=== PATIENT | female | born 1970 | race Caucasian/White ===

== ENCOUNTER → 2021-01-05 13:46 | Outpatient (CLI) | payer OTHER, SELFPAY ==
[2021-01-05 13:54] LABS: Basophils % 0.5 % (0.1-2.0); Eosinophils # 0.1 K/mm3 (0.0-0.4); Eosinophils % 1.3 % (0.1-12.0); Hematocrit 46.2 % (37.0-47.0); Hemoglobin 15.1 g/dL (12.2-16.2); Lymphocytes # 2.3 K/mm3 (0.7-4.5); Mean Corpuscular HGB Conc 32.7 g/dL (31.8-35.4); Mean Corpuscular Hemoglobin 31.2 pg (27.0-31.2); Mean Corpuscular Volume 95.3 fl (81-99); Mean Platelet Volume 9.2 fl (7.4-10.4); Monocytes # 0.5 K/mm3 (0.1-1.0); Monocytes % 6.5 % (1.7-9.3); Neutrophils # 4.3 K/mm3 (1.8-7.8); Neutrophils % 59.6 % (37.0-80.0); Platelet Count 242 K/mm3 (142-424); Red Blood Count 4.85 M/mm3 (4.20-5.40); Red Cell Distribution Width 13.6 % (11.5-17.5); White Blood Count 7.1 K/mm3 (4.8-10.8)
[2021-01-05 14:35] LABS: Free T4 (Free Thyroxine) 1.09 ng/dl (0.78-2.19)
[2021-01-05 14:55] LABS: Alanine Aminotransferase 12 U/L (12-78); Albumin/Globulin Ratio 1.5 (1.1-1.8); Alkaline Phosphatase 89 U/L (38-126); Anion Gap 12.4 mEq/L (5-15); Aspartate Amino Transferase 23 U/L (14-36); Bilirubin,Total 0.4 mg/dl (0.2-1.3); Blood Urea Nitrogen 9 mg/dl (7-17); Calcium 9.2 mg/dl (8.4-10.2); Carbon Dioxide 27 mmol/L (22.0-30.0); Chloride 107 mmol/L (98-107); Chol/HDL Ratio 4.4 (1-3.5); Cholesterol 238 mg/dl (140-200); Estimated Glomerular Filt Rate 75 ml/min (>60); GFR (African American) 91 ML/MIN (>60); Globulin 2.7 g/dL (1.3-3.2); Glucose 87 mg/dl (74-100); HDL Cholesterol 54 mg/dl (40-60); Potassium 4.4 mmoL/L (3.5-5.1); Sodium 142 mmol/L (136-145); Total Protein,Serum 6.7 g/dl (6.3-8.2); Triglycerides 88 mg/dl (30-150); VLDL Cholesterol 18 mg/dL (0-40)
[2021-01-05 15:06] LABS: Direct LDL Cholesterol 156.96 mg/dL (100-129)
[2021-01-05 15:14] LABS: 25-OH Vitamin D, Total 33.7 ng/mL (30-100)
[2021-01-05 15:51] LABS: Thyroid Stimulating Hormone 1.92 uIU/mL (0.465-4.68)
[2021-01-05 16:09] LABS: Vitamin B12 260 pg/mL (239-931)
== END ==
PROVIDERS: Visit Provider Physician Assistant
DX: R53.83 Other fatigue (principal); Z00.00 Encounter for general adult medical examination without abnormal findings
CPT/HCPCS: 80053; 80061; 82306; 82607; 84439; 84443; 85025

== ENCOUNTER → 2021-01-11 10:17 | Outpatient (CLI) | payer OTHER, SELFPAY ==
--- NOTE | 2021-01-11 10:17 | MM_ITS ---
PROCEDURE INFORMATION: Exam: MG Screening 3D Mammography Exam date and time: 01/11/2021 10:17 AM Age: 50 years old Clinical indication: Breast cancer screening TECHNIQUE: Imaging protocol: Screening tomosynthesis and 2D mammography including computer-aided detection (CAD) when performed. COMPARISON: No relevant prior studies available. FINDINGS: MAMMOGRAPHY: Breast composition: The breast tissue is heterogeneously dense, which may obscure small masses. Mass: None. Architectural distortion: None. Calcifications: No suspicious calcifications. Asymmetric density: None. Skin thickening: None. Axillary adenopathy: None. IMPRESSION: No mammographic evidence of malignancy. Annual screening is recommended unless otherwise clinically indicated. ASSESSMENT: BI-RADS Category 1: Negative
== END ==
PROVIDERS: PCP Physician Assistant; Visit Provider Physician Assistant
DX: Z12.31 Encounter for screening mammogram for malignant neoplasm of breast (principal)
CPT/HCPCS: 77063; 77067

== ENCOUNTER 2021-06-29 11:44 | Emergency (ER) | payer OTHER, SELFPAY ==
--- NOTE | 2021-06-29 13:54 | CA_ITS ---
FINAL REPORT CLINICAL HISTORY: .Right lower extremitypain FINDINGS: DUPLEX VENOUS SONOGRAPHY OF THE RIGHT LOWER EXTREMITY FINDINGS: Multiple transverse and longitudinal scans were performed of the femoropopliteal deep venous system, with augmentation and compression maneuvers. Normal phasic flow was noted in the visualized deep venous system. No intraluminal increased echogenicity is noted to suggest thrombus. There is normal compression and augmentation of the venous structures. No abnormal venous collaterals are seen. IMPRESSION: No evidence of deep venous thrombosis of the right lower extremity. Authenticated by Lou Marley MD on 06/29/2021 02:39:34 PM [facility]
[2021-06-29 13:55] VITALS: BP 127/68; PULSE 70; RESP 16; TEMP 36.9; O2SAT 96; BMI 23.1
--- NOTE | 2021-06-29 14:05 | HMH.EDUTC ---
[facility] Disposition Clinical Impression: Lumbar back pain with radiculopathy affecting lower extremity, Right leg pain Disposition: Home, Self-Care Condition on Discharge: Good Instructions: DI for Back Pain With Sciatica, Lumbar Radiculopathy, DI for Lumbar Radiculopathy Additional Instructions: Go home and rest. It would be best if you rested tomorrow too. No heavy lifting. No twisting. Take the oral medications as directed. Don't start the oral steroids (medrol dose pack) until tomorrow, since you had the shots in here today. Follow up with your regular doctor. GO TO THE ER FOR ANY WORSENING SYMPTOMS OR CONCERN, ESPECIALLY BOWEL OR BLADDER ISSUES, SADDLE AREA NUMBNESS, FEVER, ETC Prescriptions: methylPREDNISolone [Medrol] 4 mg PO DIRECTED 6 Days #21 packet Transmission Status: Received by [id number] Referrals: Madan Terrell MD [Primary Care Provider] - Time of Disposition: 15:28 Medical Decision Making - Medical Records Medical records reviewed: No: I reviewed the patient's medical records. - Richard Inquiry Pt receiving controlled substance: No Vital Signs: 06/29/21 13:55 06/29/21 15:43 Temperature 98.4 F 98.4 F Temperature Source Oral Pulse Rate 70 Pulse Rate [Right] 70 Respiratory Rate 16 16 Blood Pressure 127/68 Blood Pressure [Right Arm] 127/68 Blood Pressure Mean [Right Arm] 87 02 Sat by Pulse Oximetry 96 Orders (Tests/Meds): ED MEDICATIONS Discontinued Medications Generic Name Dose Route Start Last Admin Trade Name Freq PRN Reason Stop Dose Admin Ketorolac Tromethamine 60 mg 06/29/21 14:53 06/29/21 15:19 Ketorolac 60mg/2ml Vial IM 06/29/21 14:54 60 mg ONCE ONE Administration Methylprednisolone Sodium Succinate 125 mg 06/29/21 14:53 06/29/21 15:18 Methylprednisolone Sod Succ 125mg Vial IM 06/29/21 14:54 125 mg ONCE ONE Administration - US Data US Images: Lower Extremity ED US Reviewed: Yes: I have viewed radiologist's interpretation Preliminary Findings: Normal/NAD [facility] HPI - General Stated complaint: rt leg pain Time Seen by Provider: 06/29/21 14:05 Mode of Arrival: Ambulatory Source of Information: Patient Limitations: No Limitations Description of Symptoms (Recalled from Triage Doc. by RN): PT C/O PAIN IN HER R HIP DOWN TO HER TOES. PT STATES THE PAIN IS SHARP, PINS AND NEEDLES, PRESSURE AND OVERALL JUST HURTS. PT STATES SHE HAS NERVE PROBLEMS HOWEVER THE PAST FEW WEEKS THE PAIN HAS GOTTEN WORSE. PT STATES HER R LEG IS VISIBLY SWOLLEN. PT IS CONCERNED ABOUT A BLOOD CLOT. HEENT Symptoms (Recalled from RN notes): No Resp Symptoms (Recalled from RN notes): No Skin Symptoms (Recalled from RN notes): No MS Symptoms (Recalled from RN notes): Yes Functional Status (Recalled from RN notes): WNL - History of Present Illness Provider Complaint: She states that she is having right leg pain that radiates from her hip area down to her foot. She states that this has been an ongoing problem, but it is getting worse. Her leg has gone weak and made her fall at times. - Related Data Previous Rx's Medication Instructions Recorded atorvastatin 10 mg tablet 10 mg PO HS #30 tab 01/12/21 methylPREDNISolone [Medrol] 4 mg PO DIRECTED 6 Days #21 06/29/21 packet Allergies Allergy/AdvReac Type Severity Reaction Status Date / Time No Known Allergies Allergy Verified 01/05/21 08:32 - Worker's Comp Is this a Worker's Comp case?: No [facility] History - Hepatitis A Screen Drug use history?: No High risk sexual behaviors?: No History of sexually transmitted infection?: No Currently employed?: No Childcare worker?: No Do you have indoor plumbing?: Yes Do you have electricity?: Yes Attestation statement:: This patient has been screened for Hepatitis A risk factors. I have reviewed the patient's past medical history: Yes Other Surgeries: Yes: , Tubal Ligation, Other Comment: Top teeth extraction - S
[2021-06-29 15:43] VITALS: BP 127/68; PULSE 70; RESP 16; TEMP 36.9
== END 2021-06-29 15:44 | disposition home or self-care (01) ==
PROVIDERS: Emergency Provider Nurse Practitioner Family; PCP Emergency Medicine
DX: M54.16 Radiculopathy, lumbar region (principal); M25.551 Pain in right hip; F17.210 Nicotine dependence, cigarettes, uncomplicated
CPT/HCPCS: 93971; 96372; 99202; G0463

== ENCOUNTER → 2021-07-21 10:44 | Outpatient (CLI) | payer OTHER, SELFPAY ==
--- NOTE | 2021-07-21 10:47 | XR_ITS ---
FINAL REPORT CLINICAL HISTORY: . RT LATERAL KNEE PAIN FINDINGS: Three views of the right knee reveal no evidence of fracture or dislocation. The bony alignment is normal. The joint spaces are preserved. There is no evidence of joint effusion. No localized soft tissue abnormality is identified. IMPRESSION: No acute abnormality identified. Reviewed, Interpreted and Dictated by Markos Arroyo III, MD Transcribed by Didier Marques Authenticated by Markos Arroyo III, MD on 07/21/2021 12:47:58 PM [facility]
== END ==
PROVIDERS: PCP Emergency Medicine; Visit Provider Nurse Practitioner Family
DX: M25.561 Pain in right knee (principal)
CPT/HCPCS: 73562

== ENCOUNTER → 2021-07-26 10:30 | Outpatient (CLI) | payer OTHER, SELFPAY ==
--- NOTE | 2021-07-26 10:31 | MR_ITS ---
FINAL REPORT CLINICAL HISTORY: LOw back pain, RIGHT SIDED PAIN DOWN LEG FINDINGS: Multiplanar MR imaging of the lumbar spine was performed without contrast. Note is made of levoscoliosis. On the sagittal T2-weighted images, disc degeneration is seen throughout. The vertebral alignment is normal. There is no evidence of fracture. The conus has an unremarkable appearance. L1-2: An annular bulge and facet arthropathy are present. There is moderate right and severe left neural foraminal narrowing. L2-3: An annular bulge is present with moderate right and mild left neural foraminal narrowing. L3-4: There is no significant canal stenosis or neural foraminal narrowing. L4-5: An annular bulge and facet arthropathy are present. There is severe bilateral neural foraminal narrowing. L5-S1: An annular bulge is present. Left facet arthropathy is present. There is a small central disc protrusion with mild right and severe left neural foraminal narrowing. IMPRESSION: Multilevel degenerative disc disease and spondylosis with areas of significant neural foraminal narrowing. Small central disc protrusion at L5-S1 with severe left neural foraminal narrowing. Reviewed, Interpreted and Dictated by Markos Arroyo III, MD Transcribed by Mira Bui Authenticated by Markos Arroyo III, MD on 07/26/2021 01:13:47 PM [facility]
== END ==
PROVIDERS: PCP Emergency Medicine; Visit Provider Nurse Practitioner Family
DX: M54.50 Low back pain, unspecified (principal); M79.604 Pain in right leg
CPT/HCPCS: 72148; 76376

== ENCOUNTER 2021-09-28 10:00 | Outpatient (RCR) | payer OTHER, SELFPAY ==
--- NOTE | 2021-08-01 10:31 | HMH.PTOPEV ---
PT Outpatient Evaluation Rehab PT Outpatient Evaluation Start: 08/01/21 09:58 Freq: Status: Active Protocol: Document 08/01/21 10:22 CARLTON (Rec: 08/01/21 10:31 CARLTON [id number]) Electronically Signed By Nitesh Felix, PT 08/01/21 10:22 Outpatient Therapy Subjective History Subjective History Pt reports h/o chronic LBP, ' since I was kid', however, reports exacerbation over the last ~12 months. Pt reports insidious onset right>left sided LBP with radicular s/s from right hip to foot. Pt reports intermittent episodes of right knee and hip 'giving out'. Recent MRI reveals DDD throughout lumbar spine. Chief Complaint Pain,Stiff,Gives out/Unstable, Paresthesia,Weakness Symptom Type Ache,Throb,Sharp,Dull,Stabbing ,Burning,Numbness,Tingling, Shooting Symptoms Relieved By Rest/Positioning,Heat, Prescription Meds Symptoms Aggravated By Standing,Bending/Stooping, Physical Activity,Twisting, Walking,Lifting Prior Functional Limitations Lifting,Housework,Driving, Standing,Walking,Bending/ Stooping Current Functional Limitations Lifting,Housework,Driving, Standing,Walking,Bending/ Stooping Symptom Description Constant but Variable Level of pain today (0-10) 7 Pain scale - at its best (0-10) 7 Pain scale - at its worst (0-10) 10 Lumbopelvic Eval Posture Thoracic Spine Posture Standing Position Neutral Lumbar Spine Posture Standing Position Neutral Assistive device Assistive Devices None / NA Gait Observation General Gait Pattern Observation Antalgic Gait Palapation tenderness left lumbar spinal tenderness Yes: 3/4 paraspinal tenderness Yes: 2/4 buttock tenderness Yes: 1/4 Lumbar/Sacral Palpation Findings Tenderness,Trigger Point, Muscle Guarding right lumbar spinal tenderness Yes: 3/4 paraspinal tenderness Yes: 3/4 buttock tenderness Yes: 3/4 Lumbar/Sacral Palpation Findings Tenderness,Trigger Point, Muscle Guarding Accessory Movement L-spine Vertebrae Accessory Movements [place] that Elicit Symptoms L3 right L4 ri
--- NOTE | 2021-08-29 11:35 | HMH.RHREAS ---
Rehab Reassessment Rehab OP Re-assessment Start: 08/29/21 10:43 Freq: Status: Active Protocol: Document 08/29/21 10:43 CARLTON (Rec: 08/29/21 11:35 CARLTON [id number]) Electronically Signed By Nitesh Felix, PT 08/29/21 10:43 Rehab Re-assessment Subjective Subjective Pt reports 2/10 LBP and radicular s/s this am on VAS, and feels 75% better since I eval Objective Objective Notes TTP: RERE. LUMBAR PARA 2-3/4, RERE. PIRI MM 1-2/4 AROM: LUMBAR FLX 0-64, EXT 0- 23, R SB 0-25, L SB 0-37 MMT: R HIP FLX 4/5, R KNEE EXT 4+/5, R KNEE FLX 4/5, R DF 4+ /5 Assessment Progress Assessment Progressing as Expected Assessment Notes improved AROM, STRENGTH, AND TTP(SLIGHT) Patient goals met STG'S 11/17 Goals Not Met STG'S 09/17, LTG'S 04/20 Plan Plan Pt to continue w/skilled P.T. to make further improvements in AROM, strength, and TTP to allow for optimal function Frequency of Therapy 1-2x/wk Duration of therapy 3-4wks Time and Billing Re-Eval Time 15 Re-Eval Billing Units 1 PHYSICIAN CERTIFICATION: I certify the specified therapy services for Elke Soliz are required, authorized, and reviewed every 30 days.
== END 2021-09-28 10:05 | disposition home or self-care (01) ==
LOC: PT 10:00
PROVIDERS: PCP Emergency Medicine; Visit Provider Nurse Practitioner Family
DX: M54.50 Low back pain, unspecified (principal); M79.604 Pain in right leg
CPT/HCPCS: 97010; 97012; 97014; 97035; 97110; 97140; 97163; 97164; G0283

== ENCOUNTER 2023-10-15 11:18 | Outpatient (CLI) | payer OTHER, SELFPAY ==
[2023-10-15 19:04] LABS: Alanine Aminotransferase 15 U/L (12-78); Albumin Level 4.3 g/dl (3.5-5.0); Albumin/Globulin Ratio 1.7 (1.1-1.8); Alkaline Phosphatase 100 U/L (38-126); Anion Gap 14.2 mEq/L (5-15); Aspartate Amino Transferase 27 U/L (14-36); Bilirubin,Total 0.3 mg/dl (0.2-1.3); Blood Urea Nitrogen 14 mg/dl (7-17); Calcium 9.9 mg/dl (8.4-10.2); Carbon Dioxide 26 mmol/L (22.0-30.0); Chloride 107 mmol/L (98-107); Chol/HDL Ratio 3.3 (1-3.5); Cholesterol 245 mg/dl (140-200); Estimated Glomerular Filt Rate 74 ml/min (>60); GFR (African American) 90 ML/MIN (>60); Globulin 2.5 g/dL (1.3-3.2); Glucose 88 mg/dl (74-100); HDL Cholesterol 74 mg/dl (40-60); Potassium 4.2 mmoL/L (3.5-5.1); Sodium 143 mmol/L (136-145); Total Protein,Serum 6.8 g/dl (6.3-8.2); Triglycerides 98 mg/dl (30-150); VLDL Cholesterol 20 mg/dL (0-40)
[2023-10-15 19:07] LABS: Basophils # 0.1 K/mm3 (0-0.2); Basophils % 0.7 % (0.1-2.0); Eosinophils # 0.1 K/mm3 (0.0-0.4); Eosinophils % 0.5 % (0.1-12.0); Hematocrit 47.2 % (37.0-47.0); Hemoglobin 15.3 g/dL (12.2-16.2); Lymphocytes # 2.4 K/mm3 (0.7-4.5); Lymphocytes % 22.8 % (10-50); Mean Corpuscular HGB Conc 32.4 g/dL (31.8-35.4); Mean Corpuscular Hemoglobin 32.4 pg (27.0-31.2); Mean Corpuscular Volume 99.9 fl (81-99); Mean Platelet Volume 9.8 fl (7.4-10.4); Monocytes # 0.5 K/mm3 (0.1-1.0); Monocytes % 4.8 % (1.7-9.3); Neutrophils # 7.6 K/mm3 (1.8-7.8); Neutrophils % 71.2 % (37.0-80.0); Platelet Count 256 K/mm3 (142-424); Red Blood Count 4.73 M/mm3 (4.20-5.40); Red Cell Distribution Width 14.2 % (11.5-17.5); White Blood Count 10.6 K/mm3 (4.8-10.8)
[2023-10-15 19:16] LABS: Direct LDL Cholesterol 152.64 mg/dL (100-129)
[2023-10-15 19:21] LABS: 25-OH Vitamin D, Total 15.6 ng/mL (30-100)
[2023-10-15 19:35] LABS: Thyroid Stimulating Hormone 1.53 uIU/mL (0.465-4.68)
== END 2023-10-15 23:59 | disposition home or self-care (01) ==
LOC: LAB.DROPOF 10-16 11:23
PROVIDERS: PCP Nurse Practitioner Family; Visit Provider Nurse Practitioner Family
DX: R53.83 Other fatigue (principal); E55.9 Vitamin D deficiency, unspecified; Z68.23 Body mass index [BMI] 23.0-23.9, adult
CPT/HCPCS: 80053; 80061; 82306; 84443; 85025

== ENCOUNTER 2023-11-20 10:00 | Outpatient (RCR) | payer OTHER, SELFPAY ==
--- NOTE | 2023-10-23 10:28 | HMH.PTOPEV ---
PT Outpatient Evaluation Rehab PT Outpatient Evaluation Start: 10/23/23 09:00 Freq: Status: Active Protocol: Document 10/23/23 09:00 MEGAN (Rec: 10/23/23 10:28 MEGAN [id number]) E-signed By Samantha Graham, MICHAEL Outpatient Therapy Subjective History Subjective History Pt is a 53 y/o female who reports chronic low back pain for her whole life. Pt also reports intermittent right sciatic nerve pain for years that has become constant within the last 2-3 years. Pt had a lumbar spine MRI on 07/26 with impression of Multilevel degenerative disc disease and spondylosis with areas of significant neural foraminal narrowing. Small central disc protrusion at L5- S1 with severe left neural foraminal narrowing. Pt denies having recent imaging. Pt states she saw a neurosurgeon 2-3 years ago who recommended surgery but she did not want to have it. Pt reports current symptoms of right-sided low back pain that radiate down the anterior and posterior right leg to her foot. Pt reports constant pins and needles sensation from her right knee to her foot. Pt also reports sporadic sharp shooting pain down the back of the left leg to the foot that varies in duration. Pt reports overall pain is aggravated by prolonged sitting, standing, walking, lifting, and bending. Pt reports her right leg often feels like it will give out on her due to pain/weakness with prolonged walking and walking on inclines. Pt states she is able to perform all ADLs and iADLs with increased pain and difficulty. Pt also reports ~7 months ago she started having a lot of nausea and more frequent BM after eating that causes increased low back pain . Pt denies incontinence or saddle anesthesia. Pt reports she was recommended to see a GI specialist and have a colonoscopy. Pt denies fever but does reports some night sweats. Pt denies further comorbidities to report. New diagnosis of cancer in past 12 No months? Chief Complaint Pain,Spasms,Gives out/Unstable ,Paresthesia,Weakness Symptom Type Ache,Sharp,Stabbing,Burning, Numbness,Tingling Symptoms Relieved By Nothing Symptoms Aggravated By Supine,Sitting,Standing, Bending/Stooping,Physical Activity,Twisting,Walking, Lifting Current Functional Limitations Lifting,Housework,Dressing, Sleeping,Standing,Sitting, Squatting,Recreation Activity, Walking,Stairs,Balance,Bending /Stooping Symptom Description Constant but Variable Level of pain today (0-10) 7 Pain scale - at its best (0-10) 7 Pain scale - at its worst (0-10) 10 Lumbopelvic Eval Palapation tenderness bilateral lumbar spinal tenderness Yes: L2-L5, SI joint paraspinal tenderness Yes: R>L buttock tenderness Yes: R gluteal mm Lumbar/Sacral Palpation Findings Tenderness Lumbar/Sacral Palpation Overall Comment 3-4/4 TTP Accessory Movement L-spine Vertebrae Accessory Movements Central P/A [place] that Elicit Symptoms L2 bilateral L3 bilateral L4 bilateral L5 bilateral S1 bilateral Range of Motion Lumbar Spine Active Flexion Range of 100 Motion (degrees) Lumbar Spine Active Extension Range of 12 Motion (degrees) Left Lumbar Spine Lateral Flexion Active 10 Range of Motion (degrees) Right Lumbar Spine Lateral Flexion 5 Active Range of Motion (degrees) Manual Muscle Test Right Knee Extension Strength Grade 4 Good Knee Flexion Strength Grade 4- Good- Hip Flexion Strength Grade 4- Good- Hip Abduction Strength Grade 4- Good- Hip Adduction Strength Grade 4- Good- Hip Extension Strength Grade 4- Good- Ankle Dorsiflexion Strength Grade 5 Normal Left Knee Extension Strength Grade 5 Normal Knee Flexion Strength Grade 4 Good Hip Flexion Strength Grade 4 Good Hip Abduction Strength Grade 4- Good- Hip Adduction Strength Grade 4- Good- Hip Extension Strength Grade 4- Good- Ankle Dorsiflexion Strength Grade 5 Normal DTR Rt Patellar 2+ Lt Patellar 2+ Rt Gastroc/Soleus 2+ Lt Gastroc/Soleus 2+ Altered Sensation Bilateral LE Dermatome Level L1,L2,L3,L4,L5 Comment pt reports more intense light touch sensation R compared to L Special Tests Sciatic Nerve Tension Test Negative Left,Positive Right Unilateral Straight Leg Raise (Lasegue) Negative Left,Positive Right Test Oswestry Index Section 1 Pain Intensity The pain is severe and does not vary much Section 2 Personal Care (Washing,Dresing) unable to do some washing and dressing without help Section 3 Lifting I can only lift very light weights at most Section 4 Walking I cannot walk at all without increasing pain Section 5 Sitting Pain prevents me from sitting for more than 10 minutes Section 6 Standing I cannot stand more than 10 minutes without increasing pain Section 7 Sleeping Because of pain, my normal nights sleep is less than 2 hours sleep Section 8 Social Life Pain has restricted my social life and I do not go out often Section 9 Traveling Pain restricts me to short necessary journeys under 30 minutes Section 10 Changing Degreee of Pain My pain is gradually getting worse Score and Risk Level Oswestry Sc 42 Oswestry Risk Level Completely Disabled Outpatient Therapy Assessment Impairments Problems/Impairmments Palpation Tenderness,Impaired Range of Motion,Impaired Strength,Impaired Walking, Impaired Standing,Impaired Sitting,Impaired Lifting, Impaired Dressing,Impaired Household Care,Impaired Stair Climbing,Impaired Incline Stepping,Impaired Stepping on Uneven Surface,Impaired Squatting,Impaired Bending, Impaired Recreational Activities,Subjective C/O Pain ,Impaired Self Care/Self Management Prognosis Rehab Potential Good Comment barriers to progress include chronic pain Clinical Impression Consistent with Diagnosis Yes Short Term Goals Number of Weeks 3 Decrease Subjective C/O Pain Yes: Improve pain at worst to 8/10 to improve overall QOL Improve Self Care/Self Management Yes Patient to be Ind w/ HEP Yes 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 Goals Number of Weeks 6 Decreased Palpation Tenderness Yes: 2/4 TTP lumbar/SIJ, R gluteal mm Increase Range of Motion Yes: Improve lumbar ext & LF AROM to at least 20 Increase Strength Yes: Improve BLE MMT to 4+/5 grossly to assist with function Improve Oswestry Score Yes: Improve score to at least 32 to improve overall QOL Decrease Subjective C/O Pain Yes: Improve pain at worst to 6/10 to improve overall QOL Patient to be Ind w/ Advanced HEP Yes Outpatient Therapy Plan of Care Treatment Plan May Include Therapeutic Exercise Including Home Yes Exercise Program Manual Therapy Techniques Yes Neuromuscular Re-education Yes Therapeutic Activities to Return to Yes Previous Functional/Work Level ADL/Self Care Education Yes Mechanical Traction Yes Dry Needling Yes Thermal Modalities Yes Electrical Stimulation Yes Ultrasound/Phonophoresis Yes Iontophoresis Yes Massage Yes Eval/Re-Eval Yes Frequency Times per week 2 Duration Number of Weeks 4-6 Addendums This patient is a candidate for social No or vocational rehab? Patient/Guardian verbally acknowledges Yes understanding of treatment program and consents to further treatment? Patient/Guardian verbally acknowledges Yes understanding of diagnosis, prognosis and goals for treatment? Eval Complexity PT Charges 22687 - Low Complexity Shoulder/Elbow Eval Shoulder Objective Measurements Elbow Objective Measurements PHYSICIAN CERTIFICATION: I certify the specified therapy services for Elke Soliz are required, authorized, and reviewed every 30 days.
--- NOTE | 2023-11-20 11:03 | HMH.RHREAS ---
Rehab Reassessment Rehab OP Re-assessment Start: 10/23/23 09:00 Freq: Status: Active Protocol: Document 11/20/23 10:43 MEGAN (Rec: 11/20/23 11:03 MEGAN [id number]) E-signed By Samantha Graham PT Oswestry Index Section 1 Pain Intensity The pain is severe and does not vary much Section 2 Personal Care (Washing,Dresing) unable to do some washing and dressing without help Section 3 Lifting I can only lift very light weights at most Section 4 Walking I cannot walk at all without increasing pain Section 5 Sitting Pain prevents me from sitting for more than 10 minutes Section 6 Standing I cannot stand more than 10 minutes without increasing pain Section 7 Sleeping Because of my pain, my normal night's sleep is less than 4 hours Section 8 Social Life Pain has restricted my social life and I do not go out often Section 9 Traveling Pain restricts me to short necessary journeys under 30 minutes Section 10 Changing Degreee of Pain My pain is gradually getting worse Score and Risk Level Oswestry Sc 41 Oswestry Risk Level Completely Disabled Rehab Re-assessment Subjective Subjective Pt reports she feels 0% improved since starting PT. Pt reports constant low back pain and intermittent radiating pain/paresthesia down the right leg to her ankle/feet. Pt reports pain at worst as 9/10 and average pain as 6-7/10 on VAS. Pt reports she has been compliant with her HEP, pt states none of the exercises provide her with pain relief. Pt reports she does not have a follow-up visit with her doctor currently scheduled but plans on calling today. Pt reports she would like to avoid surgery but would consider pain management treatment due to severity of pain. Objective Objective Notes Palpation: 3-4/4 TTP of lumbar spine and L gluteal mm Lumbar AROM: flex 110, ext 30, RLF 5, LLF 12 RLE MMT: hip flex 4+/5, hip abd/add 4-/5, hip ext 4-/5, knee flex 5/5, knee ext 5/5, ankle DF 5/5 Assessment Assessment Notes Pt has attended 7 PT visits consisting of aerobic exercise , lumbar mobility, LE stretching/strengthening, core strengthening, neural glides, manual therapy and modalities . Pt demonstrated improved lumbar flex/ext AROM and LE strength this date compared to the initial evaluation. Pt continues to report constant moderate-severe pain and RLE radicular symptoms. Pt continues to score in the completely disabled category for the GLENYS outcome measure as well. Due to lack of progress with conservative care, will refer pt back to MD for further treatment options. Recommend lumbar spine MRI due to severity of pain and radicular symptoms. Patient goals met ST/3 LT/6 Goals Not Met p! severity at worst, GLENYS score, lumbar LF AROM, strength, palpation Revised Goals n/a Plan Plan Discharge and refer back to MD for further treatment options . Recommend lumbar spine MRI due to severity of pain and radicular symptoms. Time and Billing Re-Eval Time 15 Re-Eval Billing Units 1 PHYSICIAN CERTIFICATION: I certify the specified therapy services for Elke Lolis Soliz are required, authorized, and reviewed every 30 days.
== END 2023-11-20 10:05 | disposition home or self-care (01) ==
LOC: PT 10:00
PROVIDERS: Visit Provider Nurse Practitioner Family
DX: M54.50 Low back pain, unspecified (principal); M54.16 Radiculopathy, lumbar region
CPT/HCPCS: 97010; 97014; 97110; 97163; 97164; G0283

== ENCOUNTER 2023-12-20 13:44 | Outpatient (CLI) | payer OTHER, SELFPAY ==
--- NOTE | 2023-12-20 13:49 | MM_ITS ---
PROCEDURE INFORMATION: Exam: MG Bilateral Screening 3D Mammography Exam date and time: 12/20/2023 1:31 PM Age: 53 years old Clinical indication: Screening. Her mother and sister had breast cancer in their 50s, and her maternal grandmother had breast cancer. TECHNIQUE: Imaging protocol: Bilateral Screening tomosynthesis and 2D mammography including computer-aided detection (CAD) when performed. COMPARISON: MG MM DIG SCREENING MAMM BI W/CAD 01/11/2021 10:27 AM FINDINGS: MAMMOGRAPHY: Breast composition: The breasts are heterogeneously dense, which may obscure small masses. Mass: None. Architectural distortion: None. Calcifications: No suspicious calcifications. Asymmetric density: None. Skin thickening: None. Axillary adenopathy: None. IMPRESSION: No mammographic evidence of malignancy. Annual screening is recommended unless otherwise clinically indicated. Given the reported risk factors coupled with the patient's breast density, a breast cancer risk assessment may prove useful for further evaluation. ASSESSMENT: BI-RADS Category 1: Negative
== END 2023-12-20 23:59 | disposition home or self-care (01) ==
LOC: RAD 13:44
PROVIDERS: PCP Student in an Organized Health Care Education/Training Program; Visit Provider Student in an Organized Health Care Education/Training Program
DX: Z12.31 Encounter for screening mammogram for malignant neoplasm of breast (principal)
CPT/HCPCS: 77063; 77067

== ENCOUNTER 2024-01-09 10:47 | Outpatient (CLI) | payer OTHER, SELFPAY ==
--- NOTE | 2024-01-09 10:48 | US_ITS ---
PROCEDURE: US TRANSVAGINAL CLINICAL INDICATION: Pelvic Pain COMPARISON: No exams were available for comparison FINDINGS: Transvaginal sonographic images of the pelvis were obtained. UTERUS: 7.0 cm x 4.5 cmx 3.1 cm anteverted with a combined endometrial thickness of 7.9mm. The endometrium appears to have a hypoechoic rim. LEFT OVARY: 1.9 cmx1.2x1.8cm with a volume of 2ml. RIGHT OVARY: Was not visualized.. Left ovary is seen and appears atrophic. Doppler flow to left ovary is seen. There is no fluid in the cul-de-sac. IMPRESSION: 1. Anteverted uterus normal in shape and size. The endometrium measures 7.9 mm and has a hypoechoic rim. This is best seen on image 15. 2. The left ovary is seen and appears atrophic and normal. The right ovary was not seen. 3. No fluid in the cul-de-sac. Dictated by: Demian Block MD 01/10/2024 09:36 Demian Block MD in OV 01/10/2024 09:36
== END 2024-01-09 23:59 | disposition home or self-care (01) ==
LOC: RAD 10:48
PROVIDERS: PCP Nurse Practitioner Family; Visit Provider Obstetrics & Gynecology
DX: R10.2 Pelvic and perineal pain (principal)
CPT/HCPCS: 76830

== ENCOUNTER 2024-01-10 15:00 | Outpatient (CLI) | payer OTHER, SELFPAY ==
--- NOTE | 2024-01-10 15:01 | MR_ITS ---
FINAL REPORT CLINICAL HISTORY: LBP COMPARISON: 07/26/2021 FINDINGS: Multiplanar MR imaging of the lumbar spine was performed without contrast. On the sagittal T2-weighted images, there is abnormal decreased signal throughout the lumbar discs. The vertebrae are of normal height. There is 24 degrees lumbar scoliosis convex to the left. The vertebral alignment is otherwise normal. 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 L1-2: There is no significant canal stenosis or neural foraminal narrowing. L2-3: Mild diffuse disc bulge is present with mild to moderate right neural foraminal narrowing. L3-4: There is no significant canal stenosis or neural foraminal narrowing. L4-5: Diffuse disc bulge is present. There is a right posterolateral disc protrusion. There is asymmetric facet hypertrophy with high-grade bilateral neural foraminal narrowing. L5-S1: Left posterolateral disc protrusion is present. There is asymmetric facet hypertrophy and high-grade left neural foraminal narrowing. IMPRESSION: Butterfly vertebra of T11. High-grade neural foraminal narrowing, most evident bilaterally at L4-5 and on the left at L5-S1. Reviewed, Interpreted and Dictated by Manny Jasmine MD Transcribed by Mira Bui Authenticated and [facility]
== END 2024-01-10 23:59 | disposition home or self-care (01) ==
LOC: RAD 15:01
PROVIDERS: PCP Nurse Practitioner Family; Visit Provider Nurse Practitioner Family
DX: M54.16 Radiculopathy, lumbar region (principal)
CPT/HCPCS: 72148

== ENCOUNTER 2024-04-29 12:07 | Day surgery (SDC) | payer OTHER, SELFPAY ==
[2024-04-28 11:19] VITALS: BMI 22.3
[2024-04-29 12:35] VITALS: BP 104/52; PULSE 64; RESP 16; TEMP 36.3; O2SAT 98
[2024-04-29] MEDS: LACTATED RINGERS 1000ML 1,000 ML 25 ML IV (12:40)
--- NOTE | 2024-04-29 13:01 | P.PNANES_ITS ---
[facility] Disclaimer: The information contained in this section may have been updated after the patient was seen, as this information can be updated by other users. Medical History Scoliosis Vasomotor symptoms due to menopause Bloating Abdominal pain Vitamin D deficiency Lumbar back pain with radiculopathy affecting lower extremity Right leg pain Abnormal wellness exam Tobacco abuse Surgical History Previous section H/O tubal ligation Family History Grandmother Cancer Mother Cancer Sister Cancer Social History Smoking Status: Current every day smoker tobacco type: cigarettes packs per day: 1 alcohol intake: current alcohol intake frequency: holidays/special occasions only substance use type: marijuana current occupational status: unemployed Travel in the last 8 weeks: None household members: spouse current occupational exposures/hazards: No [facility] Anesthesia Checklist Patient Identification Patient Identification: Arm Band Structural Data Admitted From: Home Planned Operative Procedure/s: Colonoscopy Consent for Planned Operative Procedure(s) Verified: Yes Verified Documents: Surgical Consent and History and Physical NPO Status Verified Time NPO: 00:00 Additional verifications Anesthesia Reactions: No Airway Assessment Mallampati Score:: Class II C-Spine Mobility Assessed: Yes TMJ Mobility Assessed: Yes Dentition: Dentures-good fit Neurological Assessment Level of Consciousness: Awake, Alert and Appropriate Anesthesia Plan Anesthesia Risk discussed: Yes Anesthesia Plan: Verified ASA Class: II Anesthesia Type: MAC
--- NOTE | 2024-04-29 13:28 | EXP.HP ---
History of Present Illness *Admission Date: 04/29/24 *Reason for visit:: Change in bowel habits, lower abdominal pain, nausea *History of present illness: Mrs. Soliz is a 53-year-old female who is here for diagnostic colonoscopy secondary to change in bowel habits, lower abdominal pain, bloating and nausea. She has never had a colonoscopy. The examination is deemed medically necessary for colonoscopy. The patient has been seen, interviewed and examined prior to the procedure by both myself and the anesthesia provider. [facility] Disclaimer: The information contained in this section may have been updated after the patient was seen, as this information can be updated by other users. Medical History (Updated 04/29/24 @ 13:30 by Ryder Desir II, MD) Scoliosis Vasomotor symptoms due to menopause Bloating Abdominal pain Vitamin D deficiency Lumbar back pain with radiculopathy affecting lower extremity Right leg pain Abnormal wellness exam Tobacco abuse Surgical History Previous section H/O tubal ligation Family History Grandmother Cancer Mother Cancer Sister Cancer Social History Smoking Status: Current every day smoker tobacco type: cigarettes packs per day: 1 alcohol intake: current alcohol intake frequency: holidays/special occasions only substance use type: marijuana current occupational status: unemployed Travel in the last 8 weeks: None household members: spouse current occupational exposures/hazards: No Other Medical History Have you received the Flu Vaccine for this season: No Have you received the Pneumonia Vaccine: No Review of Systems Review of Systems Review of systems (narrative): Negative *Cardiovascular Comments: Negative *Gastrointestinal Comments: Negative *Genitourinary Comments: Negative *Musculoskeletal Comments: Negative *Neurologic Comments: Negative Meds Home Medications and Allergies Home Medications ?Medication ?Instructions ?Recorded ?Confirmed ?Type ergocalciferol (vitamin D2) 1,250 1,250 mcg PO WEEKLY #9 caps 10/18/23 04/29/24 Rx mcg (50,000 unit) capsule cholecalciferol (vitamin D3) 50 50 mcg PO DAILY 02/04/24 04/29/24 History mcg (2,000 unit) capsule New Prescriptions to Start Prescriptions: Allergies Allergy/AdvReac Type Severity Reaction Status Date / Time No Known Allergies Allergy Verified 03/05/24 10:06 Exam Data for Last 24 hours Vital signs and Labs for Last 24 Hours: Temp Pulse Resp BP Pulse Ox O2 Del Method 97.3 F L 64 16 104/52 L 98 Room Air 04/29/24 12:35 04/29/24 12:35 04/29/24 12:35 04/29/24 12:35 04/29/24 12:35 04/29/24 12:35 I & O for Last 24 hours: Intake & Output 04/26/24 04/27/24 04/28/24 04/29/24 23:59 23:59 23:59 23:59 Weight 130 lb *Routine HEENT Exam Head: Present normocephalic Eye: Present EOMI and PERRL ENT: Present mucous membranes moist *Routine Neck Exam Neck: Present supple *Routine Respiratory Exam Respiratory: Present CTA bilaterally *Routine Cardiovascular Exam Cardiovascular: Present RRR *Routine Abdominal Exam Abdominal: Present soft and normoactive bowel sounds; Absent tenderness *Routine Rectal Exam Rectal:: deferred *Routine Genitalia Exam Genitalia:: deferred *Routine Extremities Exam Extremities: Absent cyanosis, clubbing or edema *Routine Skin Exam Skin: Present warm; Absent rash *Routine Neurological Exam Neurological: Present alert and oriented X3 Assessment and Plan *Assessment and plan (1) Change in bowel habits: Status: Acute Category: Medical Code(s): R19.4 - Change in bowel habit (2) Lower abdominal pain: Status: Acute Category: Medical Code(s): R10.30 - Lower abdominal pain, unspecified (3) Bloating: Status: Acute Category: Medical Code(s): R14.0 - Abdominal distension (gaseous) Plan A/P: 1. Change in bowel habits with alternating constipation, cramps, bloating and nausea is the preprocedural diagnosis. The patient will be anesthetized/sedated using MAC sedation. The patient has been seen and examined. Cardiac and lung assessment prior to the examination is stable. Proceed with planned diagnostic colonoscopy
[2024-04-29 13:29] VITALS: O2SAT 98
--- NOTE | 2024-04-29 13:38 | P.PCN_ITS ---
[facility] Procedure Note Date: 04/29/24 Time: 13:54 Procedure Note:: Colonoscopy Procedure Report: Colonoscopy Endoscopist: Ryder Desir II, MD Referring physician: TROY Ruiz Date of Procedure: April 29, 2024 Equipment: Olympus 190 variable stiffness pediatric colonoscope Sedation: MAC sedation Indication: Mrs. Soliz is a 53-year-old female who is here for diagnostic colonoscopy secondary to lower abdominal crampy discomfort and a change in bowel habits about a year ago. She developed constipation and began to skip 2 or 3 days without a bowel movement. She has missed up to 7 days without a bowel movement. She has tried MiraLAX and fiber when necessary without much improvement. She reports generalized abdominal discomfort and can sometimes get significant right upper abdominal pain. She reports bloating, gassiness and belching. She reports no rectal bleeding but does note some mucus with her bowel movements. She reports no weight loss or family history of colon cancer. This is her first colonoscopy. Procedure: Prior to the procedure, a history and physical exam was performed, and patient's medications and allergies were reviewed. The risks, benefits and alternatives of the sedation and procedure were discussed with the patient. All questions we re answered and informed consent was obtained. The patient was brought to the procedure room. Patient identification and proposed procedure were verified by the physician and the nurse. The patient was placed in a left lateral decubitus position and the scope was passed under direct vision. Throughout the procedure, the patient's blood pressure, pulse, and oxygen saturations were monitored continuously. The colonoscopy was accomplished without difficulty. The patient tolerated the procedure well. Findings: On digital rectal examination there was normal rectal tone. There were no external hemorrhoids. The colonoscope was introduced through the anal canal to the rectum and advanced to the cecum. The ileocecal valve and appendiceal orifice were identified. The scope was advanced a short distance into the ileum which appeared grossly normal. The scope was then withdrawn into the colon. The cecum, ascending, transverse, descending, sigmoid and rectum were grossly normal. There were no mucosal abnormalities identified. Upon retroflexion within the rectum there were grade 1 internal hemorrhoids.The preparation was excellent throughout with [place] Preparation Score of 9. The cecal time was 10 minutes. Impression: 1. Normal colonoscopy with intubation of the terminal ileum Plan: I do feel that the patient has IBS-C (irritable bowel syndrome with constipation). I will discuss the findings with the patient and family as well as additional dietary measures and treatment options.
[2024-04-29 14:00] VITALS: BP 89/57; PULSE 69; RESP 18; TEMP 36.6; O2SAT 98
[2024-04-29 14:10] VITALS: BP 90/57; PULSE 77; RESP 18; O2SAT 97
[2024-04-29 14:15] VITALS: BP 102/65; PULSE 76; RESP 18; O2SAT 96
[2024-04-29 14:30] VITALS: BP 100/64; PULSE 76; RESP 18; O2SAT 97
== END 2024-04-29 14:30 | disposition home or self-care (01) ==
PROVIDERS: PCP Student in an Organized Health Care Education/Training Program; Visit Provider Internal Medicine Gastroenterology
PROC: (CPT 45378; principal; 2024-04-29 13:30)
DX: R19.4 Change in bowel habit (principal); R10.30 Lower abdominal pain, unspecified; R14.0 Abdominal distension (gaseous); K58.1 Irritable bowel syndrome with constipation; K64.0 First degree hemorrhoids
CPT/HCPCS: 45378; J7120

== ENCOUNTER 2025-02-09 11:47 | Outpatient (CLI) | payer OTHER, SELFPAY ==
[2025-02-09 15:31] LABS: Hematocrit 42.3 % (37.0-47.0); Hemoglobin 13.9 g/dL (12.2-16.2); Immature Granulocytes % 0.2 %; Mean Corpuscular HGB Conc 32.9 g/dL (31.8-35.4); Mean Corpuscular Hemoglobin 30.9 pg (27.0-31.2); Mean Corpuscular Volume 94.0 fl (81-99); Nucleated Red Blood Cells % 0 %; Platelet Count 307 K/mm3 (142-424); Red Blood Count 4.50 M/mm3 (4.20-5.40); Red Cell Distribution Width-SD 49.3 fL; White Blood Count 8.7 K/mm3 (4.8-10.8)
[2025-02-09 16:05] LABS: Hemoglobin A1C 5.7 % (4.0-6.0)
[2025-02-09 16:07] LABS: Albumin Level 4.3 g/dl (3.5-5.0); Chloride 109 mmol/L (98-107); Potassium 4.3 mmoL/L (3.5-5.1)
[2025-02-09 16:10] LABS: Alanine Aminotransferase 18 U/L (12-78); Albumin/Globulin Ratio 1.7 (1.1-1.8); Alkaline Phosphatase 87 U/L (38-126); Aspartate Amino Transferase 32 U/L (14-36); Bilirubin,Total 0.4 mg/dl (0.2-1.3); Blood Urea Nitrogen 12 mg/dl (7-17); Carbon Dioxide 24 mmol/L (22.0-30.0); Cholesterol 227 mg/dl (140-200); Creatinine,Serum 0.70 mg/dl (0.52-1.04); Estimated Glomerular Filt Rate 87 ml/min (>60); GFR (African American) 105 ML/MIN (>60); Globulin 2.5 g/dL (1.3-3.2); Total Protein,Serum 6.8 g/dl (6.3-8.2); Triglycerides 124 mg/dl (30-150)
[2025-02-09 16:11] LABS: Calcium 9.5 mg/dl (8.4-10.2); Glucose 78 mg/dl (74-100); HDL Cholesterol 53 mg/dl (40-60)
[2025-02-09 18:18] LABS: Anion Gap 8.3 mEq/L (5-15); Sodium 137 mmol/L (136-145)
[2025-02-09 18:33] LABS: Hepatitis C Ab Qual. W/ RFX NEGATIVE (Negative)
--- OUTSIDE RECORDS SUMMARY | 2025-02-10 12:06 | XMS_ITS | Encounter Summary ---
Author Organization [facility] Address [address] [id number] Care Team Providers Care Balancer Name Role Phone Madan Terrell MD Primary Care Provider + [phone] Reason for Referral * Consultation (Routine) - Closed Specialty Diagnoses / Procedures Referred By Contac t Referred To Contact Neurosurgery Diagnoses Lumbar radiculopathy Vitor Wallace APRN [address] [place] [address] Phone: tel: fax: Referral ID Status Reason Start Date Expiration Date V isits Requested Visits Authorized [id number] Closed Specialty Services Required 08/08/2021 02/07/2023 1 1 Encounter Details Date Type Department Care Team (Late st Contact Info) Description 08/08/2021 Community [facility] [address] [place] [address] Vitor Wallace APRN [address] [place] [address] Lumbar radiculopathy (Primary Dx) Social History Tobacco Use Types Packs/Day Years Used Date Smoking Tobacco: Never Assessed Comments Unknown Sex and Gender Information Value Date Recorded Sex Assigned at Not on file Legal Sex Female 7:48 PM EDT Gender Identity Not on file Sexual Orientation Not on file documented as of this encounter Plan of Treatment Scheduled Referrals Name Type Priority Associated Diagnoses Orde r Schedule Ambulatory Referral to Neurosurgery Outpatient Referral Routine Lumbar radiculopathy Expected: 08/08/2021 (Approximate), Expires: 11/08/2021 documented as of this encounter Visit Diagnoses Diagnosis Lumbar radiculopathy- Primary Thoracic or lumbosacral neuritis or radiculitis, unspecified documented in this encounter Care Teams Balancer Relationship Specialty Start Date End Date Madan Terrell MD [address] [place] [address] PCP - General 08/24/21 documented as of this encounter
--- OUTSIDE RECORDS SUMMARY | 2025-02-10 12:06 | XMS_ITS | Clinical Summary ---
Author Organization [facility] Address [address] [place] [address] Care Team Providers Care Metal Gauge Maker Name Role Phone Madan Terrell MD Primary Care Provider + [phone] Allergies No known active allergies Medications No known medications Social History Tobacco Use Types Packs/Day Years Used Date Smoking Tobacco: Every Day Cigarettes Smokeless Tobacco: Never Alcohol Use Standard Drinks/Week Comments Yes 0 (1 standard drink = 0.6 oz pur e alcohol) Comments Unknown Sex and Gender Information Value Date Recorded Sex Assigned at Not on file Legal Sex Female 7:48 PM EDT Gender Identity Not on file Sexual Orientation Not on file Last Filed Vital Signs Vital Sign Reading Time Taken Comments Blood Pressure 106/69 08/24/2021 8:52 AM EDT Pulse 75 08/24/2021 8:52 AM EDT Temperature - - Respiratory Rate - - Oxygen Saturation - - Inhaled Oxygen Concentration - - Weight 63.1 kg (139 lb 3.2 oz) 08/24/2021 8:52 A M EDT Height 162.6 cm (5' 4 ) 08/24/2021 8:52 AM EDT Body Mass Index 23.89 08/24/2021 8:52 AM EDT Plan of Treatment Health Maintenance Due Date Last Done Comments [facility]-Depression Screening 1970 [facility]-Infant/Child/Adol SDOH Screenings 1970 [facility]- SDOH Screenings 1986 [facility]-Adult SDOH Screenings 1986 [facility]-Hepatitis B Vaccines (1 of 3 - 19+ 3-dose series) 1987 [facility]-Pap Smear 02/17/1996 02/16/1993 [facility]-Cervical Cancer Screening 1998 [facility]-HPV/Cotest 1998 02/16/1993 CT Colonography 2013 Colonoscopy 2013 FIT-DNA 2013 FIT 2013 FOBT 2013 Sigmoidoscopy 2013 [facility]-Colorectal Cancer Screening 2013 [facility]-Pneumococcal Vaccine: 50 + Years (1 of 1 - PCV) 2018 [facility]-Zoster Vaccines (1 of 2) 2018 [id number] Vaccine (1 - 20 24-25 season) 2024 [facility]-Influenza Vaccine (#1) 2025 [facility]-DTaP,Tdap,and Td Vaccine s (2 - Td or Tdap) 07/23/2032 07/23/2022 HPV Vaccines Aged Out No longer eligi ble based on patient's age to complete this topic [facility]-HIB Vaccines Aged Out No longer e ligible based on patient's age to complete this topic [facility]-Hepatitis A Vaccines Aged Out No longer eligible based on patient's age to complete this topic [facility]-IPV Vaccines Aged Out No longer e ligible based on patient's age to complete this topic [facility]-Rotavirus Vaccines Aged Out No lo nger eligible based on patient's age to complete this topic Procedures Procedure Name Priority Date/Time Associated Diagnosis Comments CYTO DATA CONVERSION Routine 02/16/1993 12:00 AM EDT from Last 3 Months or Most Recently Relevant to Health Maintenance Results * Cytology (02/16/1993 12:00 AM EDT) 02/16/1993 02/17/1993 Narrative SUNQUEST - 02/20/1993 12:00 AM EDT [facility] MR #: [id number] [facility] [place], [place] [address] 1970 (Age: 22) FW Collect Date: 02/16/1993 00:00 Receipt Date: 02/17/1993 00:00 Page 1 DEPARTMENT OF PATHOLOGY AND LABORATORY MEDICINE CYTOPATHOLOGY REPORT Email: [email or web address] * Converted Case * This report may not match the original report format ATTENDING MD/Practitioner: Corina Castro MD Service: EQUIPMENT ENGINEER Location: Reported: 02/20/1993 00:00 Collected: 02/16/1993 00:00 INTERPRETATION PAP SMEAR, NOS WITHIN NORMAL LIMITS. SATISFACTORY FOR INTERPRETATION. Electronically Signed Out SHELDON Rios (ASC) Katelyn Tamayo MD Cervical cytology is a screening test primarily for squamous cancers and precursors and has associated false negative and positive results. New technologies such as liquid based sampling may decrease but will not eliminate all false negative results. Regular screening and follow-up of unexplained clinical signs and symptoms are recommended to minimize false negative results. Please see the ASCCP website (www.asccp.org) for followup recommendations. If HPV testing was requested, correlation with the results is suggested (please call Microbiology at [phone] for results). CLINICAL INFORMATION: Menstrual History: {Not Provided} Date of Last Menstrual Period: {Not Provided} SPECIMEN DESCRIPTION: A: PAP SMEAR, NOS, PAP ICD: F: {Not Entered} SNOMED CODES: 1; S7H685 [id number] F57889 In cases where a pathologist has signed out the report, the service has been rendered in part by a resident. The signing pathologist has performed and is responsible for the reported pathologic evaluation. Historical Provider LAB PATHOLOGY ORDERABLES Fin al Result SUNQUEST from Last 3 Months or Most Recently Relevant to Health Maintenance Insurance AETNA [facility] MEDICAID Care Teams Metal Gauge Maker Relationship Specialty Start Date End Date Madan Terrell MD [address] [place] [address] PCP - General 08/24/21
== END 2025-02-09 23:59 | disposition home or self-care (01) ==
LOC: LAB.DROPOF 02-10 11:49
PROVIDERS: PCP Internal Medicine; Visit Provider Internal Medicine
DX: Z00.00 Encounter for general adult medical examination without abnormal findings (principal); E78.5 Hyperlipidemia, unspecified; D75.89 Other specified diseases of blood and blood-forming organs; Z11.59 Encounter for screening for other viral diseases; Z11.4 Encounter for screening for human immunodeficiency virus [HIV]
CPT/HCPCS: 80053; 80061; 83036; 85025; 86803; 87389

== ENCOUNTER 2025-04-12 09:45 | Outpatient (CLI) | payer OTHER, SELFPAY ==
--- OUTSIDE RECORDS SUMMARY | 2025-04-12 09:54 | XMS_ITS | Clinical Summary ---
Author Organization [facility] Address [address] [place] [address] Care Team Providers Care Traffic Attendant Name Role Phone Madan Terrell MD Primary Care Provider + [phone] Allergies No known active allergies Medications No [...] Date Last Done Comments [facility]-Depression Screening 1970 [facility]-/Child/Adol SDOH Screenings 1970 [facility]- SDOH Screenings 1986 [...] 2018 [facility]-Zoster Vaccines (1 of 2) 2018 [id number] Vaccine (1 - 20 24-25 season) 2025 [facility]-Influenza Vaccine (#1) 2025 [facility]-DTaP,Tdap,and Td Vaccine [...] Narrative SUNQUEST - 02/20/1993 12:00 AM EDT [facility] MR #: [id number] [facility] [place] [place] [address] 1970 (Age: 22) FW Collect Date: 02/16/1993 00:00 Receipt Date: 02/17/1993 00:00 Page 1 DEPARTMENT OF PATHOLOGY AND LABORATORY MEDICINE CYTOPATHOLOGY REPORT Email: [email or web address] * Converted Case * This report may not match the original report format ATTENDING MD/Practitioner: Corina Castro MD Service: MAIL MACHINE OPERATOR Location: Reported: 02/20/1993 00:00 Collected: 02/16/1993 00:00 [...] results is suggested (please call Microbiology at [phone] for results). CLINICAL INFORMATION: Menstrual History: {Not Provided} Date of Last Menstrual Period: {Not Provided} SPECIMEN DESCRIPTION: A: PAP SMEAR, NOS, PAP ICD: F: {Not Entered} SNOMED CODES: 1; N7J333 F22273 R34927 In cases where a pathologist has signed out the report, the service has been rendered in part by a resident. The signing pathologist has performed and is responsible for the reported pathologic evaluation. Historical Provider LAB PATHOLOGY ORDERABLES Fin al Result SUNQUEST from Last 3 Months or Most Recently Relevant to Health Maintenance Insurance AETNA [facility] MEDICAID Care Teams Traffic Attendant Relationship Specialty Start Date End Date Madan Terrell MD [address] [place] [address] PCP - General 08/24/21
--- OUTSIDE RECORDS SUMMARY | 2025-04-12 09:54 | XMS_ITS | Encounter Summary ---
Author Organization [facility] Address [address] [id number] Care Team Providers Care Dipper And Baker Name Role Phone Madan Terrell MD Primary Care Provider + [phone] Reason for Referral * Consultation (Routine) - Closed Specialty Diagnoses / Procedures Referred By Contac t Referred To Contact Neurosurgery Diagnoses Lumbar radiculopathy Vitor Wallace APRN [address] [place] [address] Phone: tel: fax: Referral ID Status Reason Start Date Expiration Date V isits Requested Visits Authorized [id number] Closed Specialty Services Required 08/08/2021 02/07/2023 1 1 Encounter Details Date Type Department Care Team (Late st Contact Info) Description 08/08/2021 Community [facility] [address] [place] [address] Vitor Wallace APRN [address] [place] [address] Lumbar radiculopathy (Primary Dx) Social History Tobacco [...] unspecified documented in this encounter Care Teams Dipper And Baker Relationship Specialty Start Date End Date Madan Terrell MD [address] [place] [address] PCP - General 08/24/21 documented as of this encounter
--- NOTE | 2025-04-12 10:00 | CT_ITS ---
FINAL REPORT TECHNIQUE: Thin section axial images were obtained through the lungs using a low-dose technique per lung cancer screening protocol. Reconstruction images were obtained using the axial data. Exam was performed using dose reduction technique. CLINICAL HISTORY: lung cancer screening current smoker 1ppd x36 years COMPARISON: None FINDINGS: CTDLvol: 2.90 DLP: 101.07 Current smoker 36 pack year history Lungs: There is evidence of prior granulomatous disease. Mild changes of emphysema are present. There is a subpleural left lower lobe nodule measuring 3 mm in size, seen on image #48 of series 4. There is a right lower lobe 3 mm nodule, seen on image #69 of series 4. There are 2 nodules along the right minor fissure, the largest measuring 4 mm in size, that likely represent intrafissural nodes. Mediastinum: Heart size is normal. No significant adenopathy is present. There are prominent coronary artery calcifications. Pleura/pericardium: No pleural or pericardial effusion. Other: No acute abnormality in the upper abdomen. IMPRESSION: Several pulmonary nodules are present, measuring 4 mm or less in size. Lung RADS: 2S, the S designation for prominent coronary artery calcifications. Recommendation: 12-month follow-up LDCT Reviewed, Interpreted and Dictated by Jennifer Landaverde MD Transcribed by Lilly Cedillo Authenticated and [facility]
== END 2025-04-12 23:59 | disposition home or self-care (01) ==
LOC: RAD 09:45
PROVIDERS: PCP Internal Medicine; Visit Provider Internal Medicine
DX: R91.8 Other nonspecific abnormal finding of lung field (principal); I25.10 Atherosclerotic heart disease of native coronary artery without angina pectoris; F17.219 Nicotine dependence, cigarettes, with unspecified nicotine-induced disorders; Z12.2 Encounter for screening for malignant neoplasm of respiratory organs
CPT/HCPCS: 71271

== ENCOUNTER 2025-04-20 10:57 | Day surgery (SDC) | payer OTHER, SELFPAY ==
[2025-04-20 11:02] VITALS: BP 119/79; PULSE 86; RESP 18; O2SAT 97; BMI 24.0
[2025-04-20] MEDS: BUPIVACAINE 0.25% 10ML INJ 25 MG IJ (11:03)
[2025-04-20] MEDS: LIDOCAINE 1% 5ML PF VIAL 5 ML (11:03)
[2025-04-20 11:04] VITALS: BP 107/46; PULSE 81; RESP 18; O2SAT 97
--- NOTE | 2025-04-20 11:05 | P.PCN_ITS ---
Procedure Date: 04/20/25 Time: 11:00 Anesthesiologist:: Braulio Leslie CRNA Complications:: None Pre-procedure Diagnosis:: Bilateral sacroiliitis Post-procedure Diagnosis:: Same Indications for Procedure:: Patient is a very pleasant 54-year-old female who comes our clinic today for bettina ateral sacroiliac joint injections of local anesthetic for diagnostic purpose. Patient describes low lumbar back pain off the midline bilaterally. Bilateral posterior hip pain. Difficulty transitioning from sitting to standing. Difficulty with ambulation due to the bilateral posterior hip pain. She rates her pain 8/10. Procedure Details:: Procedure: Bilateral sacroiliac joint injections under fluoroscopy Informed consent was obtained and the risks and benefits of the procedure were explained to the patient.~ The patient was taken to the procedure room and noninvasive monitors were placed including a noninvasive blood pressure cuff and pulse oximeter.~ The patient was placed prone on the procedure table. Both hips were cleansed using Betadine as a cleansing solution. C-arm fluoroscopy was used to view the right sacroiliac joint.~ The skin and subcutaneous tissues were anesthetized using lidocaine 1.5% and a 25-gauge needle.~ After this, a 22-gauge spinal needle was inserted under fluoroscopic guidance into the inferior aspect of the right sacroiliac joint.~ Omnipaque dye was injected and good spread was seen throughout the joint.~ After this, approximately 5 mL of bupivacaine, 0.25% was incrementally injected into the right sacroiliac joint. We then moved to the left sacroiliac joint.~ The skin and subcutaneous tissues were anesthetized using lidocaine 1.5% and a 25-gauge needle.~ After this, a 22- gauge spinal needle was inserted under fluoroscopic guidance into the inferior aspect of the left sacroiliac joint.~ Omnipaque dye was injected and good spread was seen throughout the joint. After this, approximately 5 mL of bupivacaine, 0.25% was incrementally injected into the left sacroiliac joint.~ The patient tolerated the procedure well with no complications. The patient was observed in the Pain Clinic and then was discharged home neurologically intact. Plan and Disposition:: Patient was discharged without incident.
[2025-04-20 11:06] VITALS: BP 107/46; PULSE 81; RESP 18; O2SAT 97
[2025-04-20 11:10] VITALS: BP 112/68; PULSE 77; RESP 16; O2SAT 98
== END 2025-04-20 11:10 | disposition home or self-care (01) ==
PROVIDERS: PCP Internal Medicine; Visit Provider Nurse Anesthetist, Certified Registered
DX: M46.1 Sacroiliitis, not elsewhere classified (principal); Z87.891 Personal history of nicotine dependence
CPT/HCPCS: 27096; J0665; J2003

== ENCOUNTER 2025-05-13 07:44 | Outpatient (CLI) | payer OTHER, SELFPAY ==
--- NOTE | 2025-05-13 | CA_ITS ---
APPROVED REPORT Exam: Lexiscvanita Technologist: Peace Perez Stress Nurse: Asa Randall PA-C Ht: 5 ft 4 in Wt: 143 lbs BSA: 1.70 m2 HR: 57 bpm BP: 123/67 mmHg Rhythm: Normal Sinus Rhythm Indications: Dyspnea, Abnormal EKG, Family History, Fatigue, Coronary Artery Calcification Stress Test Details Test: Lexiscan HR Resting HR: 57 bpm Max Heart Rate (APMHR): 164.601409 bpm Max HR Achieved: 78 bpm Target HR (85% APMHR): 139.693259 bpm % of APMHR: 47.56 Recovery HR: 74 bpm BP Resting BP: 123.0/67.0 mmHg Max BP: 125.0/70.0 mmHg Recovery BP: 123.0/67.0 mmHg ECG Resting ECG: Normal Sinus Rhythm Stress ECG Conclusion No symptoms noted. No arrythmias noted. <1.5mm ST Segment changes. Non-diagnostic Lexiscan Stress Test Electronically signed by : Julia Baig MD 05/18/2025 13:07:26
--- OUTSIDE RECORDS SUMMARY | 2025-05-13 07:46 | XMS_ITS | Encounter Summary ---
Author Organization [facility] Address [address] [id number] Care Team Providers Care Dip Stand Loader Name Role Phone Madan Terrell MD Primary Care Provider + [phone] Reason for Referral * Consultation (Routine) - Closed Specialty Diagnoses / Procedures Referred By Contac t Referred To Contact Neurosurgery Diagnoses Lumbar radiculopathy Vitor Wallace APRN [address] [place] [address] Phone: tel: fax: Referral ID Status Reason Start Date Expiration Date V isits Requested Visits Authorized [id number] Closed Specialty Services Required 08/08/2021 02/07/2023 1 1 Encounter Details Date Type Department Care Team (Late st Contact Info) Description 08/08/2021 Community [facility] [address] [place] [address] Vitor Wallace APRN [address] [place] [address] Lumbar radiculopathy (Primary Dx) Social History Tobacco [...] unspecified documented in this encounter Care Teams Dip Stand Loader Relationship Specialty Start Date End Date Madan Terrell MD [address] [place] [address] PCP - General 08/24/21 documented as of this encounter
--- OUTSIDE RECORDS SUMMARY | 2025-05-13 07:47 | XMS_ITS | Clinical Summary ---
Author Organization [facility] Address [address] [place] [address] Care Team Providers Care Appian Bpm Developer Name Role Phone Madan Terrell MD Primary Care Provider + [phone] Allergies No known active allergies Medications No [...] 2018 UKY-Zoster Vaccines (1 of 2) 2018 [id number]-17 Vaccine (1 - 20 25-26 season) 2025 UKY-Influenza Vaccine (#1) 2025 UKY-DTaP,Tdap,and [...] Narrative SUNQUEST - 02/20/1993 12:00 AM EDT [facility] MR #: [id number] [facility] [place], [place] [address] 1970 (Age: 22) FW Collect Date: 02/16/1993 00:00 Receipt Date: 02/17/1993 00:00 Page 1 DEPARTMENT OF PATHOLOGY AND LABORATORY MEDICINE CYTOPATHOLOGY REPORT Email: [email or web address] [email or web address] * Converted Case * This report may not match the original report format ATTENDING MD/Practitioner: Corina Castro MD Service: SHOES HAND SEWER Location: Reported: 02/20/1993 00:00 Collected: 02/16/1993 00:00 [...] results is suggested (please call Microbiology at [phone] for results). CLINICAL INFORMATION: Menstrual History: {Not Provided} Date of Last Menstrual Period: {Not Provided} SPECIMEN DESCRIPTION: A: PAP SMEAR, NOS, PAP ICD: F: {Not Entered} SNOMED CODES: 1; [id number] In cases where a pathologist has signed out the report, the service has been rendered in part by a resident. The signing pathologist has performed and is responsible for the reported pathologic evaluation. Historical Provider LAB PATHOLOGY ORDERABLES Fin al Result SUNQUEST from Last 3 Months or Most Recently Relevant to Health Maintenance Insurance AET[employer] [facility] MEDICAID Care Teams Appian Bpm Developer Relationship Specialty Start Date End Date Madan Terrell MD [address] [place] [address] PCP - General 08/24/21
--- NOTE | 2025-05-13 08:00 | NM_ITS ---
APPROVED REPORT Exam: Nuclear Stress Test Indication: Fatigue, High cholesterol, Tobacco use, Family history Patient Location: Outpatient Stress Tech: Peace Perez [place] Tech:Sera Norman KELVINPhoenix RT(R)(N) Ht: 5 ft 4 in Wt: 135 lbs Bra Size: 38B HR: 55 bpm BP: 123/67 mmHg BSA: 1.66 m2 TID: 1.26 BMI: 23.1 History: Fatigue, High cholesterol, Tobacco use, Family history Procedure: Patient received 0.4 mg of intravenous Lexiscan, resting heart rate 55 bpm, resting blood pressure 123/67 mmHg, with Lexiscan maximum heart rate achieved was 91 bpm which is % of the maximum predicted heart rate and blood pressure was 133/71 mmHg. With Lexiscan, patient denied any complaint of chest pain. Cardiac Stress and Resting SPECT Images: Cardiac Stress and Resting SPECT images were obtained using technetium 99m Myoview 31.9 mCi stress and 10.46 mCi at rest. Resting and stress imaging in supine and prone positions demonstrate a medium sized, moderate, predominantly fixed perfusion defect in the mid to distal anterior LV wall. There is a small region of reversibility present. There is increase in transient ischemic dilatation ratio (TID 1.26), which may be suggestive of possible multivessel disease or balanced ischemia. Gated imaging demonstrates mild reduction global LV systolic function. LVEF is calculated 49%. Conclusion: Medium sized, moderate, predominantly fixed perfusion defect in the mid to distal anterior LV wall. There is a small region of reversibility present. There is increase in transient ischemic dilatation ratio (TID 1.26), which may be suggestive of possible multivessel disease or balanced ischemia. Gated imaging demonstrates mild reduction global LV systolic function. LVEF is calculated 49%. Electronically signed by : Julia Baig MD 05/18/2025 13:00:21
[2025-05-13] MEDS: SODIUM CHLORIDE 0.9% 10ML SYR (RAD ONLY) 10 ML IV ×2 (09:54)
[2025-05-13] MEDS: ISOTOPE MYOVIEW (PER STUDY) 1 DOSE IV (09:54)
--- NOTE | 2025-05-13 10:15 | CA_ITS ---
APPROVED REPORT EXAM: Comprehensive 2D, Doppler, and color-flow Echocardiogram Vamp Cut Out Worker: Katie Ridley RVT Ht: 5 ft 4 in Wt: 140lbs BSA: 1.68 BP: 116/57 mmHg Indications: SHORTNESS OF BREATH 2D Dimensions LA Volume 29.50 mL LA Volume Index 17.56 mL/m2 (M/F) 16-34 M-Mode Dimensions RVDd 2.25 cm (0.9-2.6) LA Diam 2.77 cm (1.9-4.0) LVDd 4.90 cm (3.5-5.7) LVDs 2.90 cm (3.5-5.7) IVSd 0.61 cm (0.6-1.1) PWd 0.48 cm (0.6-1.1) EF (Teich) 71.50% FS 40.80% EDV (Teich) 112.80 mL TAPSE 1.94 (<1.7) ESV (Teich) 32.20 mL LV Diastology E Decel Time 227 (160-240 msec) E/A Ratio 1.2 Aortic Valve ROZ Index 1.34 cm2/m2 AoV Peak Steve. 131.0 (50-130 cm/s) AO Peak GR. 6.80 mmHg AO Mean GR. 3.90 (<5 mmHg) AO VTI 30.5 (18-25 cm) ROZ (VTI) 2.30 (2.5-4.5 cm2) Mitral Valve MV E Max Steve. 92.0 (40-130 cm/s) MV A Velocity 76.0 (40-130 cm/s) E/A Ratio 1.22 MV PHT 66.0 ms Pulmonary Valve PV Peak Velocity 84.0 (50-150 cm/s) Left Ventricle The left ventricle is normal size. Left ventricular systolic function is normal. The left ventricular ejection fraction is within the normal range. There is normal left ventricular wall thickness. There is normal LV segmental wall motion. The left ventricular diastolic function is normal. LVEF is 55% Right Ventricle The right ventricle is normal size. The right ventricular systolic function is normal. Atria The left atrium size is normal. The right atrium size is normal. There is no color Doppler evidence of interatrial shunt. Aortic Valve The aortic valve opens well. There is no hemodynamically significant aortic valvular stenosis. No aortic regurgitation is present. Mitral Valve The mitral valve is normal in structure. No evidence of mitral valve stenosis. Mild mitral regurgitation is present. Tricuspid Valve The tricuspid valve leaflets are thin and pliable. Mild tricuspid regurgitation. RVSP is 20-25 mmHg. Pulmonic Valve The pulmonary valve is grossly normal in structure. Trace pulmonic valve regurgitation is present. Great Vessels The aortic root is normal in size. IVC is normal in size and collapses >50% with inspiration. Pericardium There is no pericardial effusion. Other Information Study Quality: Fair Conclusion Normal biventricular systolic function. Mild MR, mild TR. Electronically signed by : Julia Baig MD 05/20/2025 01:23:54
== END 2025-05-13 23:59 | disposition home or self-care (01) ==
LOC: RAD 07:45
PROVIDERS: PCP Internal Medicine; Visit Provider Physician Assistant
DX: I08.1 Rheumatic disorders of both mitral and tricuspid valves (principal); E78.00 Pure hypercholesterolemia, unspecified; I25.10 Atherosclerotic heart disease of native coronary artery without angina pectoris; R94.31 Abnormal electrocardiogram [ECG] [EKG]; R94.39 Abnormal result of other cardiovascular function study; Z72.0 Tobacco use
CPT/HCPCS: 78452; 93017; 93018; 93306; A9502; J2785

== ENCOUNTER 2025-05-25 08:59 | Outpatient (CLI) | payer OTHER, SELFPAY ==
--- OUTSIDE RECORDS SUMMARY | 2025-05-25 09:03 | XMS_ITS | Encounter Summary ---
Author Organization [facility] Address [address] [id number] Care Team Providers Care Senior Commissary Agent Name Role Phone Madan Terrell MD Primary Care Provider + [phone] Reason for Referral * Consultation (Routine) - Closed Specialty Diagnoses / Procedures Referred By Contac t Referred To Contact Neurosurgery Diagnoses Lumbar radiculopathy Vitor Wallace APRN [address] [place] [address] Phone: tel: fax: Referral ID Status Reason Start Date Expiration Date V isits Requested Visits Authorized [id number] Closed Specialty Services Required 08/08/2021 02/07/2023 1 1 Encounter Details Date Type Department Care Team (Late st Contact Info) Description 08/08/2021 Community [facility] [address] [place] [address] Vitor Wallace APRN [address] [place] [address] Lumbar radiculopathy (Primary Dx) Social History Tobacco [...] unspecified documented in this encounter Care Teams Senior Commissary Agent Relationship Specialty Start Date End Date Madan Terrell MD [address] [place] [address] PCP - General 08/24/21 documented as of this encounter
--- OUTSIDE RECORDS SUMMARY | 2025-05-25 09:03 | XMS_ITS | Clinical Summary ---
Author Organization [facility] Address [address] [place] [address] Care Team Providers Care Stem Cutter Name Role Phone Madan Terrell MD Primary Care Provider + [phone] Allergies No known active allergies Medications No [...] 2018 UKY-Zoster Vaccines (1 of 2) 2018 NLI-HFSCQ-60 Vaccine (1 - 20 25-26 season) 2025 UKY-Influenza Vaccine (#1) 2025 UKY-DTaP,Tdap,and Td Vaccine s (2 - Td or Tdap) 07/23/2032 07/23/2022 HPV Vaccines (No Doses Required) Completed UKY-HIB Vaccines Aged Out No longer e [...] - 02/20/1993 12:00 AM EDT [facility] MR #: [id number] [facility] [address] [place], [place] [address] 1970 (Age: 22) FW Collect Date: 02/16/1993 00:00 Receipt Date: 02/17/1993 00:00 Page 1 DEPARTMENT OF PATHOLOGY AND LABORATORY MEDICINE CYTOPATHOLOGY REPORT Email: [email or web address] [phone] * Converted Case * This report may not match the original report format ATTENDING MD/Practitioner: Corina Castro MD Service: ROLLING MACHINE TENDER Location: Reported: 02/20/1993 00:00 Collected: 02/16/1993 00:00 [...] results is suggested (please call Microbiology at [phone] for results). CLINICAL INFORMATION: Menstrual History: {Not Provided} Date of Last Menstrual Period: {Not Provided} SPECIMEN DESCRIPTION: A: PAP SMEAR, NOS, PAP ICD: F: {Not Entered} SNOMED CODES: 1; [id number] In cases where a pathologist has signed out the report, the service has been rendered in part by a resident. The signing pathologist has performed and is responsible for the reported pathologic evaluation. us Historical Provider LAB PATHOLOGY ORDERABLES Fin al Result SUNQUEST from Last 3 Months or Most Recently Relevant to Health Maintenance Insurance AETNA [facility] MEDICAID Care Teams Stem Cutter Relationship Specialty Start Date End Date Madan Terrell MD [address] [id number] PCP - General 08/24/21
[2025-05-25 09:11] VITALS: BMI 24.0
[2025-05-25 09:18] VITALS: BP 107/59; PULSE 61; RESP 16; TEMP 36.1; O2SAT 97
[2025-05-25 09:41] LABS: Anion Gap 10.1 mEq/L (5-15); Blood Urea Nitrogen 16 mg/dl (7-17); Calcium 9.7 mg/dl (8.4-10.2); Carbon Dioxide 24 mmol/L (22.0-30.0); Chloride 111 mmol/L (98-107); Creatinine Clearance Estimated 70 mL/min (50-200); Creatinine,Serum 0.90 mg/dl (0.52-1.04); Estimated Glomerular Filt Rate 65 ml/min (>60); GFR (African American) 78 ML/MIN (>60); Glucose 95 mg/dl (74-100); Potassium 4.1 mmoL/L (3.5-5.1); Sodium 141 mmol/L (136-145)
[2025-05-25 10:00] VITALS: BP 109/64; PULSE 55; RESP 16; O2SAT 99
--- NOTE | 2025-05-25 10:00 | CT_ITS ---
APPROVED REPORT Utility Division Project Manager: CLINICAL INDICATION Chest Pain TECHNIQUE Image Acquisition: A 128 slice MDCT scanner ([employer] Elasteraa View) was used for data acquisition. A noncontrast coronary calcium scan was performed. A CT attenuation threshold of 130 Hounsfield units (HU) was used for the detection of calcium in contiguous voxels of 1 sq mm in area to be counted as individual lesions. Bolus tracking in the ascending aorta with a threshold of 180 HU was performed. Immediately afterwards, ECG synchronized cardiac CT was then performed from the cardiac base to apex using retrospective gating with ECG tube current modulation. A total of 85 mL of Isovue 370 mg/mL contrast medium was administered at 5 mL/sec followed by a saline flush using a biphasic injection protocol. A tube voltage of 120 KVp was used. Image Reconstruction Transaxial images were reconstructed at 0.67 mm slide thickness. Data was reviewed interactively on an advanced workstation capable of 2 and 3-dimensional displays in all conventional reconstruction formats, including multiplanar reformations, maximum intensity projections, curved multiplanar reformations, and volume rendered reconstructions. When applicable, selected routine images describing the relevant coronary anatomy and pathology were saved and sent to PACS. Complications None Technical Quality Overall image quality was fair. Coronary artery opacification was fair. Total DLP (Dose-Length Product) is 1963.2 mGy-cm. The reported value represents the total of one or more individual components during the CT acquisition of this date and at this time, and as such, the same value may appear in more than one CT report depending on the interpreting/reporting physicians. COMPARISON None FINDINGS CT Coronary Calcium Scoring LMA (Left Main Artery) = 0 LAD (Left Anterior Descending) = 198 LCX (Left Coronary Circumflex) = 0 RCA (Right Coronary Artery) = 172 Total Calcium Score = 370 using the AJ-130 method. The observed calcium score of 370 is at 99th percentile for subjects of the same age, sex, and race/ethnicity. The interpretation of the calcium heart score is based on the following continuum*: 0 = no calcified plaque detected (risk of coronary artery disease is very low ??? less than 5%) 1-10 = calcium detected in extremely minimal levels (risk of coronary diseases is still low ??? less than 10%) 11-100 = mild levels of plaque detected with certainty (mild or minimal narrowing of heart arteries is likely) 101-400 = definite,at least moderate levels of plaque detected (relatively high risk of a heart attack within 3-5 years) >401-999 = extensive levels of plaque detected (high risk of heart attack, high levels of vascular disease are present, high likelihood of at least one significant coronary narrowing) *The calcium heart score quantifies the burden of coronary calcification/plaque in the coronary arteries. The calcium heart score is not able to evaluate the presence or burden of non-calcified (i.e. soft) plaque. There is also calcification in the aortic valve and the ascending and descending thoracic aorta. Coronary CT Angiography The coronary arterial system is right dominant. Quantitative Stenosis Grading: Left Main (LM): The left main originates normally from the left sinus of Valsalva. The LM bifurcates into the left anterior descending artery and left circumflex artery. The LM is patent with no evidence of atherosclerosis. Left Anterior Descending (LAD) and Diagonal Branches: The LAD gives off 3 diagonal branch(es). There is mixed calcified/non-calcified plaque in the proximal and mid LAD segments, with up to 50-70% luminal stenosis. There is no evidence of LAD-myocardial bridge Left Circumflex (LCX) and Obtuse Marginals (OM): The LCX gives off 1 Obtuse Marginal (OM) branch(es). The LCX and its branches are patent with no evidence of atherosclerosis. Right Coronary Artery (RCA): The RCA originates normally from the right sinus of Valsalva. The RCA gives off a posterior descending artery (PDA) and posterolateral (PL) branches. There is mixed calcified/non-calcified plaque in the proximal and mid RCA segments, with up to 50-70% luminal stenosis. Non-Coronary Cardiac Findings: Analysis of the left ventricular (LV) structure and function was performed after 3-D reconstruction of the LV from axial images, with user-corrected automatic contouring for assessment of LV volumes and user-defined reconstruction from oblique planes for measurement of 3-D cardiac structure and function. -The left ventricle systolic function is low-normal. -There is no left atrial appendage filling defect. Two right pulmonary veins and two left pulmonary veins drain normally into the left atrium. -No pericardial thickening or calcification. -Central and branch pulmonary arteries in the [id number] are unremarkable. -Thoracic aorta within the visualized thoracic aortic-branches in the [id number] is unremarkable. Extracardiac Structures No significant extra-cardiac findings. Note, however, that this study is focused on the cardiac findings. IMPRESSION -Presence of coronary calcification with an Agatston score = 370 using the AJ-130 method. -The observed calcium score of 370 is at 99th percentile for subjects of the same age, sex, and race/ethnicity. -Multivessel atherosclerotic coronary disease, with possible evidence of significant flow-limiting atherosclerosis of the LAD and/or RCA segments. -CAD-RADS 3. Management recommendations per ACC/AHA guidelines*, as clinically appropriate. *Recommendations: CAD RADS 0: Reassurance. Consider non-atherosclerotic causes of chest pain. CAD RADS 1: Consider non-atherosclerotic causes of chest pain. Consider preventive therapy and risk factor modification. CAD RADS 2: Consider non-atherosclerotic causes of chest pain. Consider preventive therapy and risk factor modification, particularly for patients with nonobstructive plaque in multiple segments. CAD RADS 3: Consider further functional testing. Consider symptom-guided anti-ischemic and preventive pharmacotherapy as well as risk factor modification per published guideline statements. CAD RADS 4A: Consider further functional testing or invasive coronary angiography with revascularization per published guideline statements. Consider symptom-guided anti-ischemic and preventive pharmacotherapy as well as risk factor modification per published guideline statements. CAD RADS 4B: Invasive coronary angiography recommended with revascularization per published guideline statements. Consider symptom-guided anti-ischemic and preventive pharmacotherapy as well as risk factor modification per published guideline statements. CAD RADS 5: Consider invasive angiography and/or viability assessment with revascularization per published guideline statements. Consider symptom-guided anti-ischemic and preventive pharmacotherapy as well as risk factor modification per published guideline statements. CRITICAL RESULT None COMMUNICATION Per this written report The coronary and cardiac findings of this CCTA were reviewed, reported, and signed by Nael Baig MD (Assistant Softball Coach) Conclusion Electronically signed by : Julia Baig MD 06/04/2025 07:38:18
[2025-05-25 10:05] VITALS: BP 116/71; PULSE 59; RESP 16; O2SAT 99
[2025-05-25 10:10] VITALS: BP 99/52; PULSE 53; RESP 16; O2SAT 99
[2025-05-25] MEDS: 0.9 % SODIUM CHLORIDE 50 ML VIAL IV (10:28)
[2025-05-25] MEDS: IOPAMIDOL-370 (76%);100ML BOTTLE 85 ML IV (10:28)
[2025-05-25] MEDS: SODIUM CHLORIDE 0.9% 10ML SYR (RAD ONLY) 10 ML IV (10:28)
== END 2025-05-25 10:26 | disposition home or self-care (01) ==
LOC: RAD 08:59
PROVIDERS: PCP Internal Medicine; Visit Provider Physician Assistant
DX: I25.10 Atherosclerotic heart disease of native coronary artery without angina pectoris (principal); R94.31 Abnormal electrocardiogram [ECG] [EKG]
CPT/HCPCS: 75574; 80048; Q9967